=== PATIENT | female | born 1965 | race Caucasian/White ===

== ENCOUNTER 2016-02-28 06:53 | Day surgery (SDC) | payer OTHER, MEDICAID ==
[2016-02-28] VITALS (9 sets, daily range): BP systolic 108–136; BP diastolic 67–78; PULSE 61–74; RESP 14–21; Ht 162.6 cm; Wt 71.0 kg
[~2016-02-28] VITALS: Ht 162.6 cm; Wt 71.0 kg
--- NOTE | 2016-02-28 09:26 | RADRPT ---
PROCEDURE: Chest Radiograph. CLINICAL INDICATION: Preop TECHNIQUE: Single frontal chest radiograph. COMPARISON: None available FINDINGS: The cardiomediastinal silhouette is within normal limits. No infiltrate or effusion is seen. Th e bones are intact. IMPRESSION: 1. Unremarkable chest radiograph. RPTAT: KK .Steffen Srivastava MD, MD Date Time Electronically viewed and signed by .Steffen Srivastava MD, on 02/28/2016 09:26 .B/
[2016-02-28] MEDS ORDERED: LEVO125T75 PO (09:55)
[2016-02-28] MEDS ORDERED: SOD CHLORIDE 0.9% 1,000 ML IV SCH (10:00)
[2016-02-28] MEDS ORDERED: CEFAZOLIN 2 GM/50 ML (PMX) 50 ML IVPB ONE (10:00)
[2016-02-28 10:11] LABS: BASOPHILS % 0.4 % (0.0-2.0); EOSINOPHILS # 0.1 10^3/ul (0.0-0.5); EOSINOPHILS % 1.7 % (0.0-7.0); HEMATOCRIT 35.5 % (37.0-47.0); HEMOGLOBIN 12.1 g/dl (12.0-16.0); LYMPHOCYTES # 1.3 10^3/ul (0.8-2.9); MEAN CORPUSCULAR HEMOGLOBIN 31.8 pg (29.0-33.0); MEAN CORPUSCULAR HGB CONC 33.9 g/dl (32.0-37.0); MEAN CORPUSCULAR VOLUME 93.8 fl (82.0-101.0); MEAN PLATELET VOLUME 7.7 fl (7.4-10.4); MONOCYTE # 0.4 10^3/ul (0.3-0.9); MONOCYTES % 7.5 % (0.0-11.0); NEUTROPHIL # 3.1 10^3/ul (1.6-7.5); NEUTROPHILS % 64.4 % (39.0-77.0); PLATELET COUNT 298 10^3/UL (140-440); RED BLOOD COUNT 3.79 10^6/ul (4.20-5.40); RED CELL DISTRIBUTION WIDTH 12.4 % (11.5-14.5); UNCORRECTED WBC 4.9 10^3/ul (4.8-10.8); WHITE BLOOD COUNT 4.9 10^3/ul (4.8-10.8)
[2016-02-28 10:14] LABS: CONDITION 1
[2016-02-28 10:19] LABS: INR 0.98
[2016-02-28 10:24] LABS: CALCIUM 9.3 mg/dl (8.4-10.2); CREATININE 0.71 mg/dl (0.44-1.00)
[2016-02-28] MEDS ORDERED: PROPOFOL 20 ML ONE (11:39)
[2016-02-28] MEDS ORDERED: CEFAZOLIN 1 GM INJ ONE (11:39)
[2016-02-28] MEDS ORDERED: FENTAnyl 50 MCG/ML VIAL ONE ×2 (11:39→13:22)
[2016-02-28] MEDS ORDERED: MIDAZOLAM 1 MG/ML 2 ML INJ ONE (11:39)
[2016-02-28] MEDS ORDERED: LIDOCAINE 2% (SDV) 5 ML INJ ONE (11:39)
[2016-02-28] MEDS ORDERED: DIPHENHYDRAMINE 50 MG INJ IV PRN (12:00)
[2016-02-28] MEDS ORDERED: FENTAnyl 50 MCG/ML VIAL IV PRN (12:00)
[2016-02-28] MEDS ORDERED: MEPERIDINE 25 MG INJ IV PRN (12:00)
[2016-02-28] MEDS ORDERED: ONDANSETRON 4 MG INJ IV PRN (12:00)
[2016-02-28] MEDS ORDERED: PROCHLORPERAZINE 10 MG INJ IV PRN (12:00)
[2016-02-28] MEDS ORDERED: METOCLOPRAMIDE 10 MG INJ IV PRN (12:00)
[2016-02-28] MEDS ORDERED: HYDROmorphONE (0.2 MG/ML) 10ML SYG IV PRN ×2 (12:00)
[2016-02-28] MEDS ORDERED: ONDANSETRON 4 MG INJ ONE (12:31)
[2016-02-28] MEDS ORDERED: METOCLOPRAMIDE 10 MG INJ ONE (12:31)
[2016-02-28] MEDS ORDERED: DEXAMETHASONE 4 MG/ML 1 ML INJ ONE (12:31)
[2016-02-28] MEDS ORDERED: ACETAMINOPHEN 1000MG/100ML IV 100 ML ONE (12:46)
[2016-02-28] MEDS ORDERED: PHENYLephrine (100 MCG/ML) 5ML SYG ONE (12:51)
[2016-02-28] MEDS ORDERED: oxyCODONE 5 MG TAB PO PRN (13:00)
--- NOTE | 2016-02-28 13:59 | OPR ---
DATE OF OPERATION: 02/28/2016 PREOPERATIVE DIAGNOSIS: Ductal carcinoma in situ, right breast, need for partial mastectomy. POSTOPERATIVE DIAGNOSIS: Ductal carcinoma in situ, right breast, need for partial mastectomy. OPERATION PERFORMED: Right partial mastectomy. ANESTHESIA: General. ANESTHESIOLOGIST: Kya Hutchison MD SURGEON: Epi Muir MD FUND DIRECTOR: Roney Peters MD INDICATIONS FOR PROCEDURE: The patient is a 50-year-old female, underwent surveillance mammography; was found to have suspicious microcalcifications in the upper outer quadrant of the right breast. Subsequent core biopsy revealed ductal carcinoma in situ, and complete surgical excision was recomme nded. The patient consented and was scheduled for surgery. DESCRIPTION OF PROCEDURE: On the morning of surgery, patient presented to [facility] where she underwent localization of the lesion performed by attending radiologist, Casie Leung. Subsequently, she was brought to the operating theater, placed under general an esthesia. The right breast was prepped and draped in usual sterile fashion. A curvilinear incision was made in the upper outer quadrant of the right breast in the vicinity of the previously placed l ocalization wire. Subcutaneous tissue was dissected with cautery. The skin edges were then elevate d with skin hooks and wide circumferential dissection of the tissue associated with the wire took pl ricardo using cautery, taking great care to ensure adequate margin. The specimen was elevated, transect ed, oriented, and sent for radiographic confirmation of capture. Capture was confirmed. The specim en was then sent for permanent pathologic analysis. The wound was irrigated. Minimal bleeding was controlled with cautery. The skin was then reapproximated with a deep dermal layer of 4-0 Vicryl guardado tures in interrupted fashion, followed by final skin approximation with 5-0 PDS sutures in subcuticu lar fashion. Benzoin and Steri-Strips were then applied. Patient tolerated procedure well. The to kait blood loss was 10 mL. There were no complications, and the patient was transported in stable co ndition to the recovery room where a circumferential compression dressing was applied. Dictated By: EPI MUIR MD TL/NTS Conf#: [id number] DID#: [id number]
--- NOTE | 2016-02-29 12:14 | RADRPT ---
Vent Rate: 55 bpm RR Interval: 0 msec MI Interval: 162 msec QRS Duration: 78 msec QT Interval: 424 msec QTC Interval: 405 msec P-R-T [place]: 53 - 49 - 36 degrees Sinus bradycardia Otherwise normal ECG Electronically Signed By: Mike Jaquez [id number]
== END 2016-02-28 16:25 | disposition home or self-care (01) ==
LOC: SDS 06:53
PROVIDERS: ATTEND Surgery Surgical Oncology
DX: D24.1 Benign neoplasm of right breast (principal); E03.9 Hypothyroidism, unspecified
CPT/HCPCS: 19301; 71010; 80048; 84703; 85025; 85610; 85730; 93005; J0131; J0690; J1100; J1170; J2250; J2370; J2405; J2765; J3010